=== PATIENT | female | born 1945 | race Caucasian/White ===

== ENCOUNTER → 2016-09-20 | Outpatient (CLI) | payer OTHER ==
[~2016-09-20] MED LIST: COQ-10 PO; GLUCOSAMINE PO; LRT5 PO; MELO15TA3 PO; OMEG10007 PO; SIMV40TA2 PO; VITAMIN D PO
--- NOTE | 2016-09-28 13:38 | CODING QUERY MEDICAL NECESSITY ---
SUPPORTING DIAGNOSIS NEEDED Dr. Davis, A supporting diagnosis is required for the test/procedure performed on this patient in order for us to be reimbursed by the patient's insurance. Please provide a supporting diagnosis for the following test/procedure listed below next to the test name along with your signature. *If there is no additional diagnosis for this patient that would support the following test/procedure please document that below next to the test/procedure. Test(s)/Procedure(s) that require a supporting diagnosis: * ([id number]) DXA BONE DENSITY, AXIAL DIAGNOSIS: DATE OF SERVICE: 09/20/16 Provider Signature: Date: Thank you Hank Mercado [facility] Information Management Once completed, please kindly fax back to [phone] For questions please call [phone]
== END | disposition home or self-care (01) ==
LOC: C.MAMM 13:57
PROVIDERS: ATTEND Family Medicine
DX: Z00.00 Encounter for general adult medical examination without abnormal findings (principal); E55.9 Vitamin D deficiency, unspecified; M85.80 Other specified disorders of bone density and structure, unspecified site

== ENCOUNTER → 2016-11-16 | Outpatient (CLI) | payer OTHER ==
--- NOTE | 2016-11-17 08:10 | MAMMOGRAPHY REPORT ---
BILATERAL DIGITAL SCREENING MAMMOGRAM TOMOSYNTHESIS WITH CAD: 11/16/2016 CLINICAL HISTORY: Routine screening. Patient has no complaints. TECHNIQUE: Breast tomosynthesis in addition to standard 2D mammography was performed. Current study was also evaluated with a Computer Aided Detection (CAD) system. COMPARISON: Comparison is made to exams dated: 11/11/2015 mammogram, 11/08/2014 mammogram, 11/07/2013 m ammogram, 10/18/2012 mammogram, 09/23/2011 mammogram, and 09/21/2010 mammogram - [facility] enter. BREAST COMPOSITION: There are scattered areas of fibroglandular density in both breasts. FINDINGS: The parenchymal pattern is unchanged. No developing mass, architectural distortion or clus ter of suspicious microcalcifications is seen in either breast. IMPRESSION: ACR BI-RADS CATEGORY 2: BENIGN There is no mammographic evidence of malignancy. A 1 year screening mammogram is recommended. The pa tient will receive written notification of the results. Approximately 10% of breast cancers are not detected with mammography. A negative mammographic report should not delay biopsy if a clinically suggestive mass is present. Mallory Hoover M.D. ay/:11/16/2016 17:07:17 Hosiery Mender: Wanda VAUGHN(Ruslan)(M), [facility] letter sent: Normal 1/2 BI-RADS Code: ACR BI-RADS Category 2: Benign
== END | disposition home or self-care (01) ==
LOC: C.MAMM 08:59
PROVIDERS: ATTEND Obstetrics & Gynecology
DX: Z12.31 Encounter for screening mammogram for malignant neoplasm of breast (principal)

== ENCOUNTER 2022-09-04 06:59 | Observation (INO) ==
[2022-09-04] MEDS ORDERED: ASPIRIN CHEW 324 MG PO STA (07:24)
[2022-09-04] MEDS ORDERED: SODIUM CHLORIDE 0.9% 500 ML IV STA (07:24)
[2022-09-04] MEDS ORDERED: NITROGLYCERIN SL 0.4 MG/TAB TAB SL PRN (07:33)
[2022-09-04 07:41] LABS: Basophils # (auto) 0.04 K/uL (0-0.2); Basophils % (auto) 0.4 %; Eosinophils # (auto) 0.01 K/uL (0-0.50); Eosinophils % (auto) 0.1 %; Hematocrit (blood only) 41.4 % (37.0-47.0); Hemoglobin 13.8 g/dl (12.0-16.0); Immature Granulocytes # (auto) 0.04 K/uL (0.01-0.20); Immature Granulocytes % (auto) 0.4 %; Lymphocytes # (auto) 0.72 K/uL (1.2-3.4); Lymphocytes % (auto) 6.3 %; Mean Corpuscular Hemoglobin 29.5 pg (25.0-34.0); Mean Corpuscular Hgb Conc 33.3 g/dL (32.0-36.0); Mean Corpuscular Volume 88.5 fL (80.0-100.0); Mean Platelet Volume 9.3 fL (9.4-12.4); Monocytes % (auto) 8.8 %; Neutrophils # (auto) 9.56 K/uL (1.40-6.50); Platelet Count 276 K/uL (130-400); RDW Coefficient of Variation 12.7 % (11.5-14.5); RDW Standard Deviation 40.7 fL (36.4-46.3); Red Blood Count 4.68 M/uL (4.20-5.40); White Blood Count 11.37 K/ul (4.8-10.8)
--- NOTE | 2022-09-04 07:43 | XRay Report ---
XR chest 1V portable HISTORY: 77 years-old Female Chest pain, nonspecific COMPARISON: 05/31/2022 TECHNIQUE: AP view of the chest FINDINGS: Cardiomediastinal and hilar silhouettes are within normal limits. Atherosclerosis of the aorta. No pn eumothorax, pleural effusion, or overt pulmonary edema. The bones appear grossly intact. 8.3 cm focus of airspace consolidation noted within the left midlung. IMPRESSION: Left midlung airspace consolidation suggestive of pneumonia. Follow-up imaging after kam tment course is recommended in order to document resolution. ACT 112: Negative or not required by law. The above report was generated using voice recognition software. It may contain grammatical, syntax o r spelling errors. Electronically signed by: Humberto Gallagher M.D. 09/04/2022 7:42 AM
[2022-09-04] MEDS ORDERED: ONDANSETRON INJ 2 MG/ML 2 ML VIAL IV STA (07:44)
[2022-09-04 07:58] LABS: Albumin Globulin Ratio 0.9 (0.9-2); Albumin Level 3.9 gm/dl (3.4-5.0); BUN Creatinine Ratio 16.5 (10-20); Bilirubin,Total 0.9 mg/dl (0.2-1.0); Calcium 9.7 mg/dl (8.6-10.3); Creatinine Clr Calc Pharmacy 50.3 ml/min; Est GFR (African American) 61.6 ml/min; Est GFR (Non-African American) 53.1 ml/min; Globulin 4.3 gm/dl (2.5-4.0); Potassium 3.8 mmol/L (3.5-5.1); Total Protein 8.2 gm/dl (6.0-8.3)
[2022-09-04 08:05] LABS: Troponin I High Sensitivity 10.1 pg/ml (0-14)
[2022-09-04 08:49] LABS: Prothrombin Time 11.1 Seconds (9.0-12.0)
[2022-09-04 08:56] LABS: D Dimer 2760 ug/L FEU (0-500)
[2022-09-04] MEDS ORDERED: OPTIRAY 320 125ml IV ONE (09:39)
--- NOTE | 2022-09-04 10:09 | CT Scan Report ---
CT angio chest PE protocol HISTORY: 77 years-old Female with ro PE. Acute shortness of breath TECHNIQUE: Multiple CTA images of the chest were obtained after the intravenous administration of 82 ml Optiray. Coronal and sagittal MIPS were obtained from the axial data set and were submitted for r eview. All measurements were obtained according to NASCET criteria. A dose lowering technique was ut ilized adhering to the principles of ALARA. COMPARISON: Chest radiograph of same day FINDINGS: CTA: Mild cardiomegaly. No pericardial effusion. No thoracic aortic aneurysm. No pulmonary emboli. CT CHEST: Unremarkable thyroid. No lymphadenopathy. No pneumothorax or pleural effusion. Mild intralobular sept al thickening with bronchial wall thickening. Patchy bilateral groundglass densities. Dense segmental consolidation of the left upper lobe measures up to 9.1 cm with air bronchograms. Central airways ap pear patent. Cholecystectomy. No acute process of the imaged upper abdomen. No acute fracture. IMPRESSION: 1. Cardiomegaly without pulmonary emboli identified. 2. Subsegmental left upper lobe pneumonia. Follow-up imaging after treatment course recommended in or elo to document resolution. 3. No lymphadenopathy. ACT 112: Negative or not required by law. The above report was generated using voice recognition software. It may contain grammatical, syntax o r spelling errors. Electronically signed by: Humberto Gallagher M.D. 09/04/2022 10:07 AM
[2022-09-04] MEDS ORDERED: AZITHROMYCIN 250 MG TAB PO ONE (10:15)
[2022-09-04] MEDS ORDERED: cefTRIAXone SODIUM 1,000 MG in DEXTROSE 5% AD-VAN 50 ML IV STA (10:15)
--- NOTE | 2022-09-04 10:41 | History & Physical Report ---
Date of Service September 04, 2022 Assessment & Plan (1) Acute respiratory failure with hypoxia: Plan: Community-acquired pneumonia -Leukocytosis of 11.37 -D-dimer 2760 -AST 85/ALT 60/alk phos 128 new transaminitis? Mild shock liver -High-sensitivity troponin 10.1 -EKG: Sinus tachycardia, QTc 406 rate 110 improved to 90s by time of evaluation -COVID-negative -CTA: Cardiomegaly without pulmonary emboli identified. Subsegmental left upper lobe pneumonia without lymphadenopathy -CXR: Left midlung airspace opacity suggestive of pneumonia -Curb 65 1 point, Low Risk Group; (no confusion, BUN 17, respiratory rate less than 30, normotensive, 77 years of age) No prior culture results/sputum for review. No known history of MRSA/Pseudomonas Treated empirically in ER with Rocephin/azithromycin We will continue CAP coverage with Rocephin/azithromycin. Reasonable p.o. conversion cefdinir/azithromycin if clinically improving CRP ordered on admission and trended Recommend follow-up imaging after completion of antibiotic course to ensure resolution Chest pain No acute ischemic EKG changes, high sensitive troponin is negative. D-dimer is elevated in the setting of pneumonia as above, no PE is identified on CTA Patient has had chest pain lasting multiple is less than 20 minutes and is not pleuritic/inspiratory in nature. Less than 20-minute episodes may not have been enough to trigger a troponin, will obtain 1 additional troponin as her pain just started a few hours before arrival We will follow on medical telemetry. If troponin rise, we will follow-up with echo. If troponins remain negative and no ischemic changes, can continue outpatient follow-up for this and treat pneumonia as above Transaminitis, R lower quadrant pain, right upper quadrant tenderness New. DDx does include mild shock liver however is not significantly volume depleted, creatinine and creatinine/BUN ratio are normal, and was not significantly hypotensive Patient is with mild right upper quadrant pain. Will follow-up with liver ultrasound and acute hepatic panel Patient was pending R lower quadrant pelvic ultrasound and continues to have left lower quadrant pain and a feeling of firmness in the R lower quadrant. She is pending a pelvic complete ultrasound for this this coming week, will obtain this at this time. Deferred contrasted CT on admission of the abdomen/pelvics for this evaluation as she has already received a contrast load for CTA PE robert col today Patient had a Lyme test this week at [facility] which was negative, will defer repeat Hypertension Continue irbesartan 150 mg p.o. daily Impaired fasting glucose Last A1c reportedly less than 5. Denies history of diabetes, actually takes metformin for family history of diabetes and for mild loose bowels to help with her rectocele per patient Continue home metformin 500 mg p.o. 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 Khloe reports she saw Susan Jeronimo on Tuesday for a routine followup and went over routine lab work. by Tuesday afternoon she was having pain in her ear, jaw, and headach eand very mild 2/10 but also felt very tired. No chest pain at that time. Saw Dr. Calix in the office for followup and had a LYme and COVID test which were both negative. She continued to have severe fatigue worsening over the last 2 days days and as napping on the couch from fatigue. Was taking 600mg ibuprofen once a day Was having soaking night sweats requiring her to change her sheets. Didn't hav ea temperature but was taking ibuprofen as noted Sweats continued and Tuesday Found her SpO2 which was 94%, but had increasing 'unbelievable fatigue moreso than shortness of breath' and then started to have chest pain and came to the ER. Chest pain was left/center chest with jaw pain and earache which was new today - Chest pain first began fluctuating 2-6/10. Each episode was <20 minutes overall. No effect of deep breathing on pain. Has not noticed any remitting/exacerbating factors and 'seem sto come on randomly this morning comes and goes.' - + dry cough today, no sputum production Strong family history of 'cardiac things.' Sister failed a stress test at age 70. FHX of cancer GI in father (colon) PGM (colon) sister (esophageal cancer in 70s) - Uncle of SCD on a dance floor at wedding in 50s. Lucy has had colonoscopy last week: 4 poly[address] removed w/ [facility] gets every 5 years. Has not had upper endoscopy recently. She was scheduled for abd ultrasound for evaluation of RUQ TTP and RLQ pain. 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 Denies history of transaminitis. Peeing normally. Fatigued, poor appetite last few days and poor intake Has a rectocele - On metformin for 'side effects and diarrhea with DM protection' to help with rectocele. Was travelling in [facility] in May. No other recent travel, was going to [facility] . Medical History: Reviewed Medications: Reviewed Surgical History: Reviewed Family history: Reviewed Allergies: Reviewed Social History: no tobacco/etoh Code Status: Full Code, no prolonged code. 3-5 min OK, >15 too much. Allergies Allergy/AdvReac Type Severity Reaction Status Date / Time No Known Allergies Allergy Unknown Verified 06/08/22 13:39 Home Medications Medication Instructions Recorded Confirmed Type cholecalciferol (vitamin D3) 0 mg PO DAILY 05/19/21 09/04/22 History ibuprofen [Ibuprofen IB] 0 mg PO Q6H PRN Pain 05/19/21 09/04/22 History multivitamin [Daily Multi-Vitamin] 1 tab PO DAILY 05/19/21 09/04/22 History irbesartan 150 mg tablet 150 mg PO DAILY 09/04/22 09/04/22 History metformin 500 mg tablet,extended 500 mg PO DAILY 09/04/22 09/04/22 History release 24 hr rosuvastatin 20 mg tablet 20 mg PO DAILY 09/04/22 09/04/22 History vit C 250 mg-vit E 90 mg-zinc 40 1 cap PO DAILY 09/04/22 09/04/22 History mg-copper 1 [id number] capsule (PreserVision AREDS-2) Past Med/Surg History Medical History COVID-19 (04/2022) Hypercholesterolemia Irritable bowel syndrome Migraine headache Osteopenia Surgical History History of bilateral tubal ligation History of cholecystectomy Family History Father Colorectal cancer Grandmother (Paternal) Colorectal cancer Sister Esophageal cancer Denies family history of Ovarian cancer Breast cancer Social History Smoking Status: Never smoker Do You Dip or Chew Tobacco: No; Hx Alcohol Use: Yes Alcohol Intake Frequency: 2-4 x/Month marital status: Current Living Situation: Spouse current occupational status: retired 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 NAD. Cooperative. HEENT: Atraumatic, normocephalic. Vision and hearing grossly intact Pulm: CTAB A&P. -wheezes, -rales, -rhonchi. Symmetrical chest rise. No increased work of breathing. No respiratory distress. Cardiac: RRR, -mrg. Radial pulses intact and symmetrical. Abdominal: Right lower quadrant with around 9 cm area of firmness on light palpation, mildly tender to palpation. No rebound or guarding. Abdomen otherwise soft. Has right upper quadrant pain to deep palpation with no Daley's. No left-sided pain at time of admission. Extremities: Warm, dry no edema. Moves all extremities equally Results & Data Results & Data Vital Signs (Past 12 Hours) Vital Signs Temp Pulse Pulse Resp BP BP Pulse Ox 09/04/22 09:11 85 L 09/04/22 09:06 95 H 20 116/86 100 09/04/22 08:13 94 H 09/04/22 07:30 109 H 22 154/85 H 98 09/04/22 07:01 36.8 C 116 H 20 129/74 98 O2 Del Method 09/04/22 09:11 Room Air 09/04/22 09:06 Room Air 09/04/22 08:13 09/04/22 07:30 Room Air 09/04/22 07:01 Room Air PG Care Time/CCT Total # of Minutes Spent Total Time Spent with Patient: Total time spent is greater than 50% in coordination of care (as documented) at patient's floor/unit and/or counseling patient: Coding Level of Care Code 91196 INT INP/OBS CARE 3/75MIN Diagnoses Acute respiratory failure with hypoxia J96.01 CAP (community acquired pneumonia) J18.9 Left lower quadrant pain R10.32 RUQ abdominal pain R10.11 Transaminitis R74.01
[2022-09-04] MEDS ORDERED: GLUCAGON FOR INJ 1 MG VIAL SQ PRN (11:24)
[2022-09-04] MEDS ORDERED: CARBOHYDRATES FOR HYPOGLYCEMIA PO PRN (11:24)
[2022-09-04] MEDS ORDERED: GLUCOSE 10 TAB/TUBE PO PRN (11:24)
[2022-09-04] MEDS ORDERED: GLUCOSE 40% GEL 15 GM TUBE PO PRN (11:24)
[2022-09-04] MEDS ORDERED: DEXTROSE 50% 50 ML SYRINGE IV PRN (11:24)
[2022-09-04] MEDS ORDERED: ONDANSETRON INJ 2 MG/ML 2 ML VIAL IV PRN (13:19)
[2022-09-04] MEDS ORDERED: POLYETHYLENE (MIRALAX) 17 GM PACK PO PRN (13:19)
[2022-09-04] MEDS: INSULIN ASPART PER UNIT CHARGE SC SCH ×3 (13:20→20:40)
[2022-09-04] MEDS ORDERED: ENOXAPARIN INJ 40 MG/0.4 ML SYR SQ SCH (14:15)
[2022-09-04] MEDS ORDERED: NSS + 20MEQ KCL 20 MEQ/1,000 ML BAG IV SCH (14:15)
[2022-09-04] MEDS: IBUPROFEN 200 MG TAB PO PRN (14:35)
--- NOTE | 2022-09-04 15:11 | Emergency Department Note ---
History of Present Illness General Chief Complaint: Chest Pain Stated Complaint: CHEST PAIN Time Seen by Provider: 09/04/22 07:14 History of Present Illness Provider Complaint: chest pain Time: 06:00 Duration: intermittent Onset: during rest Pain Location: substernal and left chest Pain Radiation: none Severity: mild Maximum Pain Intensity: 3 Current Pain Intensity: 3 Quality: + sharp Relieved By: + nothing Exacerbated By: + other (Coughing) Context: no recent illness, no recent surgery, no recent immobilization, no recent travel, no trauma/injury or no new medications Associated symptoms: + dyspnea and + cough; no nausea, no syncope, no palpitations or no leg swelling Home Medications Medication Instructions Recorded Confirmed Type cholecalciferol (vitamin D3) 0 mg PO DAILY 05/19/21 09/04/22 History ibuprofen [Ibuprofen IB] 0 mg PO Q6H PRN Pain 05/19/21 09/04/22 History multivitamin [Daily Multi-Vitamin] 1 tab PO DAILY 05/19/21 09/04/22 History irbesartan 150 mg tablet 150 mg PO DAILY 09/04/22 09/04/22 History metformin 500 mg tablet,extended 500 mg PO DAILY 09/04/22 09/04/22 History release 24 hr rosuvastatin 20 mg tablet 20 mg PO DAILY 09/04/22 09/04/22 History vit C 250 mg-vit E 90 mg-zinc 40 1 cap PO DAILY 09/04/22 09/04/22 History mg-copper 1 rv-bnonah-bojmry capsule (PreserVision AREDS-2) Allergies Allergy/AdvReac Type Severity Reaction Status Date / Time No Known Allergies Allergy Unknown Verified 06/08/22 13:39 Past Med/Surg History Medical History COVID-19 (04/2022) Hypercholesterolemia Irritable bowel syndrome Migraine headache Osteopenia Surgical History History of bilateral tubal ligation History of cholecystectomy Family History Father Colorectal cancer Grandmother (Paternal) Colorectal cancer Sister Esophageal cancer Denies family history of Ovarian cancer Breast cancer Social History Smoking Status: Former smoker Second Hand Exposure: No; Do You Dip or Chew Tobacco: No; Hx Alcohol Use: Yes Alcohol type: wine Alcohol Intake Frequency: 2-4 x/Month Hx Substance Use: No Communication Ability: Effective Reinforced Concrete Inspector Required: No Beliefs That Will Affect Care: None marital status: Current Living Situation: Spouse Current Living Situation Comment: 2 story home current occupational status: retired 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[employer], admin Feels Safe at Home: Yes Safety Concerns: Feels Safe At This Time Physical Activity Frequency: Daily Physical Activity Frequency Comment: walks the dog Assistive Devices: Cane Physical Exam Vital Signs Vital Signs - 24 hr 09/04/22 07:01 09/04/22 07:30 09/04/22 08:13 Temperature 36.8 C Temperature Source Oral Pulse Rate 116 H 94 H Pulse Rate [Left Finger] 109 H Respiratory Rate 20 22 Respiratory Effort / Characteristics Non-Labored Respiratory Depth Normal Blood Pressure 129/74 Blood Pressure [Left Arm] 154/85 H Blood Pressure Mean 92 Blood Pressure Mean [Left Arm] 108 Blood Pressure Position [Left Arm] Sitting Pulse Oximetry 98 98 Oxygen Delivery Method Room Air Room Air Sepsis Recent Fever Within 48 Hours No Sepsis New/Unexplained Change in Mental Status N/A Sepsis Action Taken by Nursing No Action Required Oxygen Flow Rate - Titration Pulse Oximetry Post Tiitration 09/04/22 09:06 09/04/22 09:11 09/04/22 11:00 Temperature Temperature Source Pulse Rate Pulse Rate [Left Finger] 95 H 76 Respiratory Rate 20 18 Respiratory Effort / Characteristics Respiratory Depth Blood Pressure Blood Pressure [Left Arm] 116/86 123/92 Blood Pressure Mean Blood Pressure Mean [Left Arm] 96 102 Blood Pressure Position [Left Arm] Sitting Sitting Pulse Oximetry 100 85 L 98 Oxygen Delivery Method Room Air Room Air Sepsis Recent Fever Within 48 Hours Sepsis New/Unexplained Change in Mental Status Sepsis Action Taken by Nursing Oxygen Flow Rate - Titration 2 Pulse Oximetry Post Tiitration 95 Physical Exam GENERAL: oriented to person, place, and time. appears well-developed and well- nourished. HENT: Exam performed. - Head: Normocephalic and atraumatic. EYES: Conjunctivae and EOM are normal. Right eye exhibits no discharge. Left eye exhibits no discharge. No scleral icterus. NECK: Normal range of motion. Neck supple. No JVD present. CV: Normal rate, regular rhythm, normal heart sounds and intact distal pulses. There is no peripheral edema. Palpable radial pulses bue. PULM/CHEST: Effort normal and breath sounds normal. No respiratory distress. No stridor. no wheezes. no rales. ABD: The abdomen is soft. There is no tenderness. NEURO: Motor and sensation grossly intact. SKIN: Skin is warm and dry. He is not diaphoretic. PSYCH: normal mood and affect. Behavior is normal. Judgment and thought content normal. Course Course 07: The patient was evaluated in room A10. A complete history and physical exam was performed Cardiac monitoring: An order was placed for continuous cardiac monitoring. The monitor shows a rate of 110 with sinus rhythm interpreted by ne 0915: Patient came hypoxic on room air. Supplemental oxygen applied to the patient. Patient's D-dimer is elevated. Will obtain CT of the chest. Chest x- ray does show pneumonia. 1015: Vital signs stable on supplemental oxygen via nasal cannula. Imaging does show pneumonia. Patient be treated with azithromycin and Rocephin for community-acquired pneumonia. Administered Medications Potassium Chloride/Sodium Chloride (Normal Saline W/20 Meq Kcl) 20 meq in 1,000 mls @ 120 mls/hr IV .Q8H20M [facility] Stop: 09/04/22 22:34 Last Admin: 09/04/22 14:33 Dose: 120 mls/hr Documented By: ASHLEY Ibuprofen (Ibuprofen 200 Mg Tab) 400 mg PO TID PRN PRN Reason: pain/fever Stop: 10/04/22 13:18 Last Admin: 09/04/22 14:35 Dose: 400 mg Documented By: ASHLEY Insulin Aspart (Insulin Aspart Per Unit Charge) 0 units SC ACHS [facility] Stop: 10/04/22 11:29 Last Admin: 09/04/22 13:20 Dose: Not Given Documented By: ASHLEY Nitroglycerin (Nitroglycerin Sl 0.4 Mg/Tab Tab) 0.4 mg SL Q5M PRN PRN Reason: Chest Pain Stop: 10/04/22 07:32 Last Admin: 09/04/22 07:35 Dose: 0.4 mg Documented By: ANANTH Discontinued Medications Aspirin (Aspirin Chew 324 Mg) 324 mg PO NOW STA Stop: 09/04/22 07:25 Last Admin: 09/04/22 07:31 Dose: 324 mg Documented By: ANANTH Azithromycin (Azithromycin 250 Mg Tab) 500 mg PO NOW ONE Stop: 09/04/22 10:16 Last Admin: 09/04/22 11:11 Dose: 500 mg Documented By: ANANTH Sodium Chloride (Nss) 500 mls @ 999 mls/hr IV .Q31M STA Stop: 09/04/22 07:54 Last Infusion: 09/04/22 08:02 Dose: 0 mls/hr Documented By: Admin: 09/04/22 07:31 Dose: 999 mls/hr Documented By: ANANTH Ceftriaxone Sodium 1,000 mg/ (Dextrose) 50 mls @ 100 mls/hr IV NOW STA Stop: 09/04/22 10:44 Last Infusion: 09/04/22 13:25 Dose: 0 mls/hr Documented By: Admin: 09/04/22 11:11 Dose: 100 mls/hr Documented By: ANANTH Ioversol (Optiray 320 125ml) 82 ml IV ONCE ONE Stop: 09/04/22 09:40 Last Admin: 09/04/22 09:39 Dose: 82 ml Documented By: SARA Ondansetron HCl (Ondansetron Inj 2 Mg/Ml 2 Ml Vial) 4 mg IV NOW STA Stop: 09/04/22 07:45 Last Admin: 09/04/22 07:49 Dose: 4 mg Documented By: ANANTH Medical Decision Making Laboratory Data Attestation: I reviewed the patient's lab results. 09/04/22 07:22 09/04/22 07:22 Labs: Lab Results 09/04/22 09/04/22 09/04/22 Range/Units 07:22 07:22 07:22 WBC 11.37 H (4.8-10.8) K/ul RBC 4.68 (4.20-5.40) M/uL Hgb 13.8 (12.0-16.0) g/dl Hct 41.4 (37.0-47.0) % MCV 88.5 (80.0-100.0) fL MCH 29.5 (25.0-34.0) pg MCHC 33.3 (32.0-36.0) g/dL RDW Std Deviation 40.7 (36.4-46.3) fL RDW Coeff of Gutierrez 12.7 (11.5-14.5) % Plt Count 276 (130-400) K/uL MPV 9.3 L (9.4-12.4) fL Immature Gran % (Auto) 0.4 % Neut % (Auto) 84.0 % Lymph % (Auto) 6.3 % Toole % (Auto) 8.8 % Eos % (Auto) 0.1 % Baso % (Auto) 0.4 % Neut # (Auto) 9.56 H (1.40-6.50) K/uL Lymph # (Auto) 0.72 L (1.2-3.4) K/uL Toole # (Auto) 1.00 H (0.11-0.59) K/uL Eos # (Auto) 0.01 (0-0.50) K/uL Baso # (Auto) 0.04 (0-0.2) K/uL Immature Gran # (Auto) 0.04 (0.01-0.20) K/uL PT 11.1 (9.0-12.0) Seconds INR 1.0 (0.9-1.1) APTT 28.0 (21.0-31.0) Seconds PTT Ratio 1.0 D-Dimer 2760 H* (0-500) ug/L FEU Sodium 132 L (136-145) mmol/L Potassium 3.8 (3.5-5.1) mmol/L Chloride 98 (98-107) mmol/L Carbon Dioxide 22 (21-32) mmol/L Anion Gap 12 H (3-11) BUN 17 (6-23) mg/dl Creatinine 1.03 (0.6-1.2) mg/dl Est Cr Clr Drug Dosing 50.3 ml/min Est GFR ( Amer) 61.6 ml/min Est GFR (Non-Af Amer) 53.1 ml/min BUN/Creatinine Ratio 16.5 (10-20) Glucose 154 H (70-99(Fasting)) mg/dl Calcium 9.7 (8.6-10.3) mg/dl Total Bilirubin 0.9 (0.2-1.0) mg/dl AST 85 H (13-39) U/L ALT 60 H (7-52) U/L Alkaline Phosphatase 128 H (34-104) U/L Troponin I High Sens 10.1 (0-14) pg/ml Total Protein 8.2 (6.0-8.3) gm/dl Albumin 3.9 (3.4-5.0) gm/dl Globulin 4.3 H (2.5-4.0) gm/dl Albumin/Globulin Ratio 0.9 (0.9-2) Lipase 13 (11-82) U/L SARS-CoV-2, RNA, NAAT (NEGATIVE) 09/04/22 Range/Units 09:44 WBC (4.8-10.8) K/ul RBC (4.20-5.40) M/uL Hgb (12.0-16.0) g/dl Hct (37.0-47.0) % MCV (80.0-100.0) fL MCH (25.0-34.0) pg MCHC (32.0-36.0) g/dL RDW Std Deviation (36.4-46.3) fL RDW Coeff of Gutierrez (11.5-14.5) % Plt Count (130-400) K/uL MPV (9.4-12.4) fL Immature Gran % (Auto) % Neut % (Auto) % Lymph % (Auto) % Toole % (Auto) % Eos % (Auto) % Baso % (Auto) % Neut # (Auto) (1.40-6.50) K/uL Lymph # (Auto) (1.2-3.4) K/uL Toole # (Auto) (0.11-0.59) K/uL Eos # (Auto) (0-0.50) K/uL Baso # (Auto) (0-0.2) K/uL Immature Gran # (Auto) (0.01-0.20) K/uL PT (9.0-12.0) Seconds INR (0.9-1.1) APTT (21.0-31.0) Seconds PTT Ratio D-Dimer (0-500) ug/L FEU Sodium (136-145) mmol/L Potassium (3.5-5.1) mmol/L Chloride (98-107) mmol/L Carbon Dioxide (21-32) mmol/L Anion Gap (3-11) BUN (6-23) mg/dl Creatinine (0.6-1.2) mg/dl Est Cr Clr Drug Dosing ml/min Est GFR ( Amer) ml/min Est GFR (Non-Af Amer) ml/min BUN/Creatinine Ratio (10-20) Glucose (70-99(Fasting)) mg/dl Calcium (8.6-10.3) mg/dl Total Bilirubin (0.2-1.0) mg/dl AST (13-39) U/L ALT (7-52) U/L Alkaline Phosphatase (34-104) U/L Troponin I High Sens (0-14) pg/ml Total Protein (6.0-8.3) gm/dl Albumin (3.4-5.0) gm/dl Globulin (2.5-4.0) gm/dl Albumin/Globulin Ratio (0.9-2) Lipase (11-82) U/L SARS-CoV-2, RNA, NAAT NEGATIVE (NEGATIVE) Imaging Data Chest x-ray: Attestation: I personally reviewed and interpreted this imaging study as follows: My impression: Chest x-ray: Left-sided infiltrate. Radiologist's impression: XR chest 1V portable HISTORY: 77 years-old Female Chest pain, nonspecific COMPARISON: 05/31/2022 TECHNIQUE: AP view of the chest FINDINGS: Cardiomediastinal and hilar silhouettes are within normal limits. Atherosclerosis of the aorta. No pneumothorax, pleural effusion, or overt pulmonary edema. The bones appear grossly intact. 8.3 cm focus of airspace co nsolidation noted within the left midlung. IMPRESSION: Left midlung airspace consolidation suggestive of pneumonia. Follow- up imaging after treatment course is recommended in order to document resolu tion. ACT 112: Negative or not required by law. The above report was generated using voice recognition software. It may contain grammatical, syntax or spelling errors. Electronically signed by: Humberto Gallagher M.D. 09/04/2022 7:42 AM Dictated:09/04/22739 Transcribed: 09/04/22739 CT scan - chest: Radiologist's impression: CT angio chest PE protocol HISTORY: 77 years-old Female with ro PE. Acute shortness of breath TECHNIQUE: Multiple CTA images of the chest were obtained after the intravenous administration of 82 ml Optiray. Coronal and sagittal MIPS were obtained from the axial data set and were submitted for review. All measurements were obtaine d according to NASCET criteria. A dose lowering technique was utilized adhering to the principles of ALARA. COMPARISON: Chest radiograph of same day FINDINGS: CTA: Mild cardiomegaly. No pericardial effusion. No thoracic aortic aneurysm. No pulmonary emboli. CT CHEST: Unremarkable thyroid. No lymphadenopathy. No pneumothorax or pleural effusion. Mild intralobular septal thickening with bronchial wall thickening. Patchy bilateral groundglass densities. Dense segmental consolidation of the left upper lobe measures up to 9.1 cm with air bronchograms. Central airways appear patent. Cholecystectomy. No acute process of the imaged upper abdomen. No acute fracture. IMPRESSION: 1. Cardiomegaly without pulmonary emboli identified. 2. Subsegmental left upper lobe pneumonia. Follow-up imaging after treatment course recommended in order to document resolution. 3. No lymphadenopathy. ACT 112: Negative or not required by law. The above report was generated using voice recognition software. It may contain grammatical, syntax or spelling errors. Electronically signed by: Humberto Gallagher M.D. 09/04/2022 10:07 AM Dictated:09/04/22 1000 Transcribed: 09/04/22 1000 ECG Data Attestation: I personally reviewed and interpreted this ECG as follows: Indication: chest pain and SOB/dyspnea Rate (beats per minute): 110 Rhythm: sinus tachycardia Findings: no ST depression, no ST elevation or no prolonged QT MDM Narrative 0714: The patient was evaluated in room A10. A complete history and physical exam was performed Cardiac monitoring: An order was placed for continuous cardiac monitoring. The monitor shows a rate of 110 with sinus rhythm interpreted by me 0915: Patient came hypoxic on room air. Supplemental oxygen applied to the patient. Patient's D-dimer is elevated. Will obtain CT of the chest. Chest x- ray does show pneumonia. 1015: Vital signs stable on supplemental oxygen via nasal cannula. Imaging does show pneumonia. Patient be treated with azithromycin and Rocephin for community-acquired pneumonia. Impression & Plan Hypoxia, Pneumonia Critical Care Time Critical Care Time: Yes Total Critical Care Time: 57 I have personally spent greater than 57 minutes of critical care time in the direct management of this patient. This includes bedside care, interpretation of diagnostic studies, and testing, discussion with consultants, patient, and family members, and other required patient management activities. This 57 minutes is in excess of all separately billable procedures. Discharge Plan Visit Data Chief Complaint: Chest Pain Stated Complaint: CHEST PAIN ED Provider: Jose Cruz [place] Discharge Problem: Hypoxia, Pneumonia Patient Disposition: Admitted As Inpatient Discharge Instructions Interventions: ED Discharge Assessment Last Done: 09/04/22 12:19
--- NOTE | 2022-09-04 16:29 | Ultrasound Report ---
ABDOMINAL ULTRASOUND, RIGHT UPPER QUADRANT HISTORY: Acute right upper quadrant abdominal pain RUQ pain, transaminitis. COMPARISON: CTA chest of same day FINDINGS: Pancreas: The pancreas demonstrates a normal echotexture. Liver: Unremarkable. Gallbladder: Cholecystectomy. CBD: 0.5 cm. Right kidney: No hydronephrosis. IMPRESSION: Unremarkable exam status post cholecystectomy. ACT 112: Negative or not required by law. Electronically signed by: Humberto Gallagher M.D. 09/04/2022 4:27 PM
--- NOTE | 2022-09-04 16:31 | Ultrasound Report ---
US pelvic complete, US transvaginal HISTORY: 77 years-old Female chronc RLQ pain, firmness the right lower quadrant abdominal pain COMPARISON: None TECHNIQUE: Multiple real-time sonographic images of the deep pelvic structures were obtained transabd ominally and transvaginally assessing grayscale appearance, color and spectral flow. FINDINGS: TRANSABDOMINAL: Anteflexed uterus measures 8.2 x 3.8 x 3.0 cm. Endometrium is 4 mm in thickness. Nonvisualization of the ovaries. TRANSVAGINAL: Unremarkable appearance of the uterus. Nabothian cysts of the cervix. Endometrium is 3 mm in thicknes s. No myometrial mass lesion identified. Ovaries are obscured by bowel gas. No adnexal mass lesions identified. Trace free pelvic fluid. IMPRESSION: 1. Unremarkable sonographic appearance of the uterus and endometrium. 2. Nonvisualization of the ovaries. ACT 112: Negative or not required by law. The above report was generated using voice recognition software. It may contain grammatical, syntax o r spelling errors. Electronically signed by: Humberto Gallagher M.D. 09/04/2022 4:30 PM
--- NOTE | 2022-09-05 06:58 | Electrocardiogram Report ---
Test Reason : Blood Pressure : / mmHG Vent. Rate : 110 BPM Atrial Rate : 110 BPM P-R Int : 124 ms QRS Dur : 072 ms QT Int : 300 ms P-R-T Axes : 053 -01 042 degrees QTc Int : 406 ms Sinus tachycardia Abnormal ECG When compared with ECG of 18-SEP-2010 13:50, Vent. rate has increased BY 36 BPM Confirmed by Dashawn Rodriguez ([id number]) on 09/05/2022 6:58:43 AM Referred By: REFERRED SELF Confirmed By:Xu Rodriguez
[2022-09-05 07:09] LABS: Basophils # (auto) 0.04 K/uL (0-0.2); Basophils % (auto) 0.5 %; Eosinophils % (auto) 1.3 %; Hematocrit (blood only) 35.1 % (37.0-47.0); Immature Granulocytes # (auto) 0.03 K/uL (0.01-0.20); Immature Granulocytes % (auto) 0.4 %; Lymphocytes # (auto) 1.33 K/uL (1.2-3.4); Lymphocytes % (auto) 16.7 %; Mean Corpuscular Hemoglobin 29.6 pg (25.0-34.0); Mean Corpuscular Hgb Conc 34.2 g/dL (32.0-36.0); Mean Corpuscular Volume 86.7 fL (80.0-100.0); Mean Platelet Volume 9.3 fL (9.4-12.4); Monocytes # (auto) 1.02 K/uL (0.11-0.59); Monocytes % (auto) 12.8 %; Neutrophils # (auto) 5.43 K/uL (1.40-6.50); Neutrophils % (auto) 68.3 %; Platelet Count 271 K/uL (130-400); RDW Coefficient of Variation 12.9 % (11.5-14.5); RDW Standard Deviation 41.1 fL (36.4-46.3); Red Blood Count 4.05 M/uL (4.20-5.40); White Blood Count 7.95 K/ul (4.8-10.8)
[2022-09-05 07:37] LABS: Albumin Globulin Ratio 0.9 (0.9-2); Albumin Level 3.3 gm/dl (3.4-5.0); BUN Creatinine Ratio 20.8 (10-20); Bilirubin,Total 0.5 mg/dl (0.2-1.0); Creatinine Clr Calc Pharmacy 68.3 ml/min; Est GFR (African American) 87.5 ml/min; Est GFR (Non-African American) 75.5 ml/min; Globulin 3.5 gm/dl (2.5-4.0); Potassium 3.9 mmol/L (3.5-5.1); Total Protein 6.8 gm/dl (6.0-8.3)
[2022-09-05] MEDS: IBUPROFEN 200 MG TAB PO PRN (08:01)
[2022-09-05] MEDS: INSULIN ASPART PER UNIT CHARGE SC SCH ×2 (08:07→11:35)
[2022-09-05] MEDS ORDERED: LOSARTAN POTASSIUM 50 MG TAB PO SCH (09:00)
[2022-09-05] MEDS ORDERED: AZITHROMYCIN 250 MG in DEXTROSE 5% 250 ML IV SCH (09:00)
[2022-09-05] MEDS ORDERED: metFORMIN HCL ER 500 MG TABCR PO SCH (09:00)
[2022-09-05] MEDS ORDERED: CEROVITE ADV FORMULA TAB PO SCH (09:00)
[2022-09-05] MEDS ORDERED: ROSUVASTATIN CALCIUM 20 MG TAB PO SCH (10:45)
[2022-09-05] MEDS ORDERED: CHOLECALCIFEROL 1,000 UNITS 25 MCG TAB PO SCH (10:45)
[2022-09-05] MEDS ORDERED: cefTRIAXone SODIUM 2,000 MG in DEXTROSE 5% 50 ML IV SCH (11:30)
--- NOTE | 2022-09-05 14:31 | Discharge Summary ---
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 Khloe reports she saw Susan Jeronimo on Tuesday for a routine followup and went over routine lab work. by Tuesday afternoon she was having pain in her ear, jaw, and headach eand very mild 2/10 but also felt very tired. No chest pain at that time. Saw Dr. Calix in the office for followup and had a LYme and COVID test which were both negative. She continued to have severe fatigue worsening over the last 2 days days and as napping on the couch from fatigue. Was taking 600mg ibuprofen once a day Was having soaking night sweats requiring her to change her sheets. Didn't hav ea temperature but was taking ibuprofen as noted Sweats continued and Tuesday Found her SpO2 which was 94%, but had increasing 'unbelievable fatigue moreso than shortness of breath' and then started to have chest pain and came to the ER. Chest pain was left/center chest with jaw pain and earache which was new today - Chest pain first began fluctuating 2-6/10. Each episode was <20 minutes overall. No effect of deep breathing on pain. Has not noticed any remitting/exacerbating factors and 'seem sto come on randomly this morning comes and goes.' - + dry cough today, no sputum production Strong family history of 'cardiac things.' Sister failed a stress test at age 70. FHX of cancer GI in father (colon) PGM (colon) sister (esophageal cancer in 70s) - Uncle of SCD on a dance floor at wedding in 50s. Lucy has had colonoscopy last week: 4 polyps removed w/ [facility] gets every 5 years. Has not had upper endoscopy recently. She was scheduled for abd ultrasound for evaluation of RUQ TTP and RLQ pain. Sees Dr. Lagunas channel layer. Denies history of transaminitis. Peeing normally. Fatigued, poor appetite last few days and poor intake Has a rectocele - On metformin for 'side effects and diarrhea with DM protection' to help with rectocele. Was travelling in [facility] in May. No other recent travel, was going to [facility] . Medical History: Reviewed Medications: Reviewed Surgical History: Reviewed Family history: Reviewed Allergies: Reviewed Social History: no tobacco/etoh Code Status: Full Code, no prolonged code. 3-5 min OK, >15 too much. Principal Dx & Hospital Course #1 = Principal Diagnosis (1) CAP (community acquired pneumonia): Presented with fevers, pleuritic chest pain, SOB, WBC count 11, mild tachypnea, dry cough D-dimer 2760 but CTA CHest neg for PE, shows large MILA PNA With mild transaminitis related to acute infection now resolving COVID-negative Treated with Rocephin/azithromycin x 2 days and will dc to home on po cefdinir x 5 more days and 3 more days of po azithromycin Improving, no further chest pain, ambulating without difficulty, not hypoxic (2) Jaw pain: with left ear and jaw pain and some occasional spikes of pain across forehead--> likely related to AOM. Reports PCP noted bulging TM left ear recently abx for PNA will also cover for AOM improving, take tylenol or advil prn (3) Transaminitis: mild on admission and improving Likely related to acute infection and PNA Hep ABC panel pending liver US normal follow as outpt (4) HTN (hypertension), benign: BPs low normal hold home irbesartan x 2 days then restart if BP > 110 (5) Rectocele: hold home metformin she takes to loosen her stools until 48 hrs [address] contrast from CT scan (6) Hypercholesterolemia: continue statin (7) Heart murmur: 2/6 JOZEF heard at [facility] suspect mild or aortic sclerosis recommend outpt ECHO Plan Chronic RLQ abd pain-had pelvic US and RUQ US here that are normal Had recent colonoscopy as well Recommend CT abd/pel as outpt Keep appt tomorrow for dedicated abd US in that spot-could be hernia in abd wall? May need SUrgery referral as outpt Dispo-dc to home, doing well Discharge Exam Constitutional WD/WN, vitals as above Respiratory normal respiratory effort, lungs clear to auscultation (except diminished in left middle and upper lung field) Cardiovascular Rate/Rhythm: regular rate and regular rhythm Heart Sounds: + murmur (2/6 JOZEF at [facility]) Extremities: no edema Psychiatric A+Ox3, euthymic affect Updated Medication List Medication Instructions Recorded Confirmed Type cholecalciferol (vitamin D3) 0 mg PO DAILY 05/19/21 09/04/22 History ibuprofen [Ibuprofen IB] 0 mg PO Q6H PRN Pain 05/19/21 09/04/22 History multivitamin [Daily Multi-Vitamin] 1 tab PO DAILY 05/19/21 09/04/22 History irbesartan 150 mg tablet 150 mg PO DAILY 09/04/22 09/04/22 History metformin 500 mg tablet,extended 500 mg PO DAILY 09/04/22 09/04/22 History release 24 hr rosuvastatin 20 mg tablet 20 mg PO DAILY 09/04/22 09/04/22 History vit C 250 mg-vit E 90 mg-zinc 40 1 cap PO DAILY 09/04/22 09/04/22 History mg-copper 1 ih-axvair-vgdhae capsule (PreserVision AREDS-2) azithromycin 250 mg tablet 250 mg PO DAILY #3 tabs 09/05/22 Rx cefdinir 300 mg capsule 300 mg PO BID #10 caps 09/05/22 Rx Hospital Stay Data Consultations 09/04/22 10:16 ED Decision to Admit Stat Diagnostic Imagining Performed 09/04/22 09:04 CT angio chest PE protocol Stat 09/04/22 11:23 US pelvic complete Routine 09/04/22 11:24 US liver Routine US transvaginal Routine Pending Results Patient Have Any Pending Studies at Discharge: No Discharge Instructions Given to Patient (Per Discharging Provider) Please take the complete course of antibiotics with cefdinir 300mg twice a day x 5 more days and azithromycin 250mg once daily x 3 more days. You will need to have a repeat CT chest in 6 weeks to ensure resolution of the pneumonia. You do have a heart murmur and should talk to your PCP about ordering an echocardiogram as an outpatient. Total Time Total Time Spent Total Time Spent (In Minutes): 35 min Coding Level of Care Code 73440 INP/OBS DISCH >30 MIN Diagnoses CAP (community acquired pneumonia) J18.9 Jaw pain R68.84 Transaminitis R74.01 HTN (hypertension), benign I10 Rectocele N81.6 Hypercholesterolemia E78.00 Heart murmur R01.1
--- NOTE | 2022-09-06 11:37 | Coding Query ---
To promote full compliance with coding requirements relating to patient care, provider participation is requested in all cases of lead refinery supervisor uncertainty. Please assist us with the question(s) below: Coding Question(s): The diagnosis(es) below was documented in the H&P then subsequently fell off all further documentation. Please indicate if it is still a possible diagnosis or ruled out. Physician's Response(s): Acute Respiratory Failure with Hypoxia (x ) Diagnosed and POA ( ) Diagnosed and not POA ( ) Ruled out ( ) Other (please specify) MTDD
[2022-09-07 10:53] LABS: HBSAG NON-REACTIVE (NON-REACTIVE); Hepatitis A Antibody IgM NON-REACTIVE (NON-REACTIVE); Hepatitis B Core Antibody IgM NON-REACTIVE (NON-REACTIVE)
== END 2022-09-05 15:16 | disposition home or self-care (01) | DRG 193 ==
LOC: ED 06:59 → 2N 11:22 → INTOOBSV 11:22 → SUATTDRO 11:22 → 2N 12:19